=== PATIENT | male | born 1985 | race Caucasian/White ===

== ENCOUNTER 2017-07-11 14:23 | Emergency (ER) | payer SELFPAY ==
[2017-07-11] MEDS ORDERED: fentaNYL 100 MCG/2 ML INJ IVP ONE (14:44)
[2017-07-11] MEDS ORDERED: HYDROmorphONE/DILAUDID 1 MG/ML INJ ONE (14:45)
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
[2017-07-11] MEDS ORDERED: TDAP ADULT 0.5 ML INJ (BOOSTRIX) IM ONE (14:51)
[2017-07-11 14:52] LABS: PLATELET COUNT 223 10^3/uL (150-400)
[2017-07-11 15:00] LABS: INR 0.99 (0.83-1.16); PROTIME(PATIENT) 13.3 SEC (12.0-15.0)
[2017-07-11] MEDS ORDERED: IOPAMIDOL (ISOVUE-300) 100 ML BTL ONE (15:24)
[2017-07-11] MEDS ORDERED: OXYCODONE/APAP 5/325 TAB PO ONE (16:43)
[2017-07-11 17:12] VITALS: BP 126/89
== END 2017-07-11 17:02 | disposition home or self-care (01) ==
DX: S27.0XXA Traumatic pneumothorax, initial encounter (principal); S23.29XA Dislocation of other parts of thorax, initial encounter; S27.321A Contusion of lung, unilateral, initial encounter; S80.811A Abrasion, right lower leg, initial encounter; S80.812A Abrasion, left lower leg, initial encounter; S40.811A Abrasion of right upper arm, initial encounter; S40.812A Abrasion of left upper arm, initial encounter; Z23 Encounter for immunization; V18.0XXA Pedal cycle driver injured in noncollision transport accident in nontraffic accident, initial encounter; Y92.830 Public park as the place of occurrence of the external cause; Y99.8 Other external cause status; Y93.55 Activity, bike riding
CPT/HCPCS: 96374; A4565; J1170; J3010; Q9967